=== PATIENT | female | born 1955 | race Caucasian/White ===

== ENCOUNTER 2024-09-08 14:44 | Emergency (ER) | payer OTHER ==
[~2024-09-08] VITALS: Ht 152.4 cm; Wt 73.6 kg
[~2024-09-08 14:44] MED LIST: DULO20CA71 PO; LORA10TA7 PO; MONT-35 PO; PANT-31 PO; SIMV-260 PO
[2024-09-08 14:50] VITALS: BP 166/98; TEMP 98.4
[2024-09-08 15:42] LABS: BASOPHILS % (AUTO) 0.3 % (0.0-2.0); EOSINOPHILS % (AUTO) 1.7 % (1.0-6.0); HEMATOCRIT 38.9 % (36-46); HEMOGLOBIN 12.8 g/dL (12.0-16.0); LYMPHOCYTES % (AUTO) 26.1 % (22.0-44.0); MEAN CORPUSCULAR HGB CONC 32.8 G/dL (31.0-37.0); MEAN CORPUSCULAR VOLUME 88 fL (80-100); MONOCYTES # (AUTO) 0.4 K/uL (0.1-1.0); MONOCYTES % (AUTO) 5.9 % (2.0-9.0); NEUTROPHILS # (AUTO) 4.9 K/uL (1.8-7.7); PLATELET COUNT (AUTO) 366 K/uL (150-450); RED CELL DISTRIBUTION WIDTH 14.9 % (11.5-14.5); WHITE BLOOD COUNT (AUTO) 7.5 K/uL (4.5-11.0)
[2024-09-08 15:51] LABS: CALCIUM, TOTAL 8.4 mg/dL (8.8-10.5); CREATININE 0.99 mg/dL (0.60-1.30)
[2024-09-08 15:59] LABS: TROPONIN I-HIGH SENSITIVITY 7 ng/L (<51)
[2024-09-08 16:59] LABS: COVID AG,FIA SOURCE NASAL SWAB
[2024-09-08] MEDS ORDERED: ACET-3385 PO (17:13)
[2024-09-08] MEDS ORDERED: AZIT-164 PO (17:13)
[2024-09-08 17:20] LABS: SARS-COV2 (COVID) ANTIGEN,FIA Negative (Negative)
[2024-09-08 17:22] LABS: INFLUENZA TYPE A NEGATIVE FOR TYPE A (NEGATIVE); INFLUENZA TYPE B NEGATIVE FOR TYPE B (NEGATIVE)
[2024-09-08 17:44] VITALS: PULSE 104; RESP 20; O2SAT 99
[2024-09-08] MEDS: IBUPROFEN 600 MG TABLET PO ONE (17:44)
[2024-09-08] MEDS: ALBUTEROL SULFATE HFA 90 MCG/PUFF 8 GM INHALER IH ONE (17:44)
[2024-09-08] MEDS: AZITHROMYCIN 500 MG TABLET PO ONE (17:44)
== END 2024-09-08 17:55 | disposition home or self-care (01) ==
LOC: EMS 14:44
DX: J40 Bronchitis, not specified as acute or chronic (principal); E78.00 Pure hypercholesterolemia, unspecified; I10 Essential (primary) hypertension; Z79.899 Other long term (current) drug therapy; Z98.890 Other specified postprocedural states; Z20.822 Contact with and (suspected) exposure to COVID-19
CPT/HCPCS: 99285; 71045; 87426; 80048; 83880; 84484; 85025; 87804; 36415; 94640; 93005; J0456; J3535